=== PATIENT | female | born 1995 | race Hispanic/Latino ===

== ENCOUNTER 2025-06-07 15:26 | Emergency (ER) | payer SELFPAY ==
[~2025-06-07] VITALS: Ht 162.6 cm; Wt 107.5 kg
[2025-06-07] MEDS: BENZONATATE 100 MG CAPSULE PO STA (15:38)
[2025-06-07] MEDS: 0.9%NACL 1000ML 1,000 ML IV STA (15:38)
--- NOTE | 2025-06-07 15:47 | EKG ---
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
[2025-06-07 15:59] LABS: IMMATURE GRANULOCYTE ABSOLUTE 0.03 K/uL (0-1); NUCLEATED RED BLOOD CELLS 0.0 % (0.0-0.19); PLATELET COUNT (AUTO) 290 K/uL (130-400); RED BLOOD CELL COUNT(AUTO) 5.12 MIL/uL (4.00-5.50); RED CELL DISTRIBUTION WIDTH 13.0 % (11.0-15.5); WHITE BLOOD COUNT (AUTO) 9.6 K/uL (4.8-10.8)
[2025-06-07 16:06] LABS: CREATININE 0.7 mg/dL (0.5-1.0); GLOMERULAR FILTR. RATE CALC 119.0 mL/min (>90); GLUCOSE,RANDOM 92.0 mg/dL (70-105); SODIUM SERUM 140.0 mmol/L (136-145); UREA NITROGEN, BLOOD 15.0 mg/dL (7-18)
[2025-06-07 16:13] LABS: SARS-CoV-2, RNA, NAAT NEGATIVE SARS CoV-2 (NEGATIVE)
[2025-06-07 16:19] LABS: INFLUENZA TYPE A Negative For Type A (NEGATIVE); INFLUENZA TYPE B Negative For Type B (NEGATIVE)
[2025-06-07 18:00] VITALS: BP 135/81; PULSE 78; RESP 19; TEMP 98.6; O2SAT 97
--- NOTE | 2025-06-07 18:06 | HMCIMG ---
EXAM: XR Chest, 1 View. CLINICAL HISTORY: 29-year-old female with a cough. COMPARISON: Prior XR Chest from 05/19/2016 at 4:29 AM. FINDINGS: LUNGS: No consolidation. PLEURAL SPACES: No pleural effusion or pneumothorax. HEART: The heart size is normal. BONES: No acute osseous abnormality. IMPRESSION: 1. No acute cardiopulmonary process. 2. Findings similar compared to prior XR Chest from 05/19/2016 at 4:29 AM. /[place]
--- NOTE | 2025-06-07 18:13 | ERN ---
ED Note History of Present Illness Stated Complaint: CHEST PAIN Chief Complaint: Chest Pain Time Seen by MD: 15:32 Time Seen by Midlevel: 15:36 Dictation: 29-year-old female with no past medical history coming in with complaints of cough for the last two days along with the chest pain. Went to see PCP this morning and was sent here for her chest pain. Patient states pain is worse on palpation. Denies having any shortness a breath, fevers, nausea vomiting, or congestion. Allergies: Coded Allergies: No Known Drug Allergies (Unverified Allergy, Unknown, 06/07/25) Past Medical History Past Medical History: Other Additional Past Medical Hx: NUERALGIA, ERYTHEMA Surgical History: Tonsillectomy LMP: Jun 06, 2025 : 0 Review of System Dictation Constitutional: Negative for fever,chills, and weight loss Eyes: Negative for injury, pain,redness, and discharge ENT: Negative for injury,pain or swelling Cardiovascular: Positive for chest pain, no palpitations, and edema Respiratory: Negative for shortness of breath, positive for cough Abdomen/GI: Negative for abdominal pain, nausea, vomiting, diarrhea, and constipation Back: Negative for injury and pain : Negative for injury, bleeding and discharge MS/Extremity: Negative for injury and deformity Skin: Negative for rash, and discoloration Neuro: Negative for headache, weakness, numbness, tingling, and seizure Psych: Negative for suicide ideation, homicidal ideation, and hallucinations Review of Systems: was completed Initial Vital Sign VS Vital Signs Date Time Temp Pulse Resp B/P (MAP) Pulse Ox O2 Delivery O2 Flow Rate FiO2 06/07/25 15:29 97.7 76 18 138/63 98 Room Air 0 06/07/25 17:00 21 Physical Exam Dictation General: awake, alert, NAD Head/Face: Normocephalic, atraumatic Eyes: PERRL, EOMI, vision at baseline ENT: oral cavity clear, TMs clear, no signs of infection Neck: Trachea midline, supple, no nuchal rigidity Cardiovascular: RRR, normal S1/S2, No MRGs, no JVD Respiratory: CTAB, no respiratory distress, No rales or wheezes Abdomen: Soft, non-tender, non-distended, normal bowel sounds, no guarding or rebound. Skin: Warm, dry, normal turgor, no rash MS/Extremity: Pulses equal, no cyanosis, neurovascular intact, FROM Neuro: COAx4, GCS 15, strength 5/5, CN 2-12 intact, normal cerebellar exam, normal gait, Psych: Normal behavior, mood, and affect normal Results (Laboratory/Radiology) Laboratory/Radiology Laboratory Tests Test 06/07/25 15:40 06/07/25 15:50 Influenza Type A Antigen Negative For Type A Influenza Type B Antigen Negative For Type B SARS-CoV-2, RNA, NAAT NEGATIVE SARS CoV-2 White Blood Count 9.6 K/uL (4.8-10.8) Red Blood Count 5.12 MIL/uL (4.00-5.50) Hemoglobin 13.5 g/dL (12.0-16.0) Hematocrit 42.6 % (36-48) Mean Corpuscular Volume 83.2 fL (79-99) Mean Corpuscular Hemoglobin 26.4 pg (27.0-33.0) L Mean Corpuscular Hemoglobin Concent 31.7 g/dL (32.0-36.0) L Red Cell Distribution Width 13.0 % (11.0-15.5) Platelet Count 290 K/uL (130-400) Mean Platelet Volume 9.9 fL (7.5-10.5) Immature Granulocyte % (Auto) 0.3 % (0-1) Neutrophils (%) (Auto) 59.5 % (40.0-77.0) Lymphocytes (%) (Auto) 31.1 % (21.0-51.0) Monocytes (%) (Auto) 6.5 % (3.0-13.0) Eosinophils (%) (Auto) 1.9 % (0.0-8.0) Basophils (%) (Auto) 0.7 % (0.0-5.0) Neutrophils # (Auto) 5.7 K/uL (1.8-7.7) Lymphocytes # (Auto) 3.0 K/uL (1.0-4.8) Monocytes # (Auto) 0.6 K/uL (0.1-1.0) Eosinophils # (Auto) 0.18 K/uL (0.00-0.70) Basophils # (Auto) 0.07 K/uL (0.00-0.20) Absolute Immature Granulocyte (auto 0.03 K/uL (0-1) Nucleated Red Blood Cells 0.0 % (0.0-0.19) Sodium Level 140 mmol/L (136-145) Potassium Level 3.8 mmol/L (3.5-5.1) Chloride Level 103 mmol/L (101-111) Carbon Dioxide Level 27 mmol/L (21-32) Blood Urea Nitrogen 15 mg/dL (7-18) Creatinine 0.7 mg/dL (0.5-1.0) Glomerular Filtration Rate Calc 119 mL/min (>90) Random Glucose 92 mg/dL (70-105) Total Calcium 9.2 mg/dL (8.5-10.1) Troponin I High Sensitivity < 4 ng/L (4-50) L Labs Reviewed?: Yes ED Course ED Course Orders Procedure Category Date Status Time 12 Lead Ekg Tracing- EKG 06/07/25 Logged Technical 15:39 Cbc With Differential LAB 06/07/25 Complete 15:38 Basic Metabolic Panel LAB 06/07/25 Complete 15:38 Troponin I High LAB 06/07/25 Complete Sensitivity 15:38 12 Lead Ekg Tracing- EKG 06/07/25 Complete Technical 15:38 Chest 1vw RAD 06/07/25 Resulted 15:38 Covid Rna Naat LAB 06/07/25 Complete 15:38 Influenza Type A & B, LAB 06/07/25 Complete Rapid 15:38 0.9%Nacl 1000ml (Ns PHA 06/07/25 Complete 1000ml) 15:38 Ketorolac PHA 06/07/25 Complete Tromethamine 15mg/Ml 15:38 Benzonatate 100 Mg PHA 06/07/25 Complete Capsule (Tessalon 100 15:38 Current Medications Medications (Trade) Dose Ordered Sig/Gregory Route PRN Reason Start Time Stop Time Status Last Admin Dose Admin Benzonatate (Tessalon 100mg Caps) 200 mg ONCE STAT PO 06/07/25 15:38 06/07/25 15:45 DC Ketorolac Tromethamine (toRADol) 15 mg ONCE STAT IV 06/07/25 15:38 06/07/25 15:45 DC 06/07/25 15:38 Sodium Chloride 1,000 ml @ 1,000 mls/hr Q1H STAT IV 06/07/25 15:38 06/07/25 16:37 DC 06/07/25 15:38 Vital Signs Date Time Temp Pulse Resp B/P (MAP) Pulse Ox O2 Delivery O2 Flow Rate FiO2 06/07/25 18:00 98.6 78 19 135/81 97 Room Air* 0 21 06/07/25 17:00 99.1 81 20 117/66 99 Room Air* 0 21 06/07/25 15:29 97.7 76 18 138/63 98 Room Air 0 Medical Decision Making MDM MDM: 29-year-old female with no past medical history coming in with complaints of cough for the last two days along with the chest pain. Went to see PCP this morning and was sent here for her chest pain. Patient states pain is worse on palpation. Denies having any shortness a breath, fevers, nausea vomiting, or congestion. Blood work is unremarkable. Troponin is negative. EKGs shows no ST elevations, Rocephin put a nasal arrhythmias. Chest x-ray shows no acute finding interpreted by myself. Discussed with the patient because pain is reproducible on palpating bilateral chest brock this more than likely represents costochondritis versus a cardiac etiology. Patient received fluids, Toradol and cough medication in the ER. Educated she needs to follow up PCP in in 1-2 days and return to the hospital for any worsening symptoms. Patient verbalized understanding, answered all questions. Differential diagnosis: Costochondritis, STEMI, NSTEMI, pneumonia, viral syndrome Rationale: Tests considered and ordered secondary to shared decision making inc lude: Previous outside records reviewed: Old ER visits. Risk of complication and/or morbidity or mortality of patient management: None Medications-Per medication reconciliation Need for hospitalization: Patient does not meet criteria for hospitalization. Need for emergency major/minor surgery: No There are no social concerns with this patient. Prescription drug management Prescriptions will include symptomatic care Patient's prior external medical records from other ER visits were reviewed by me as indicated. Prior testing and results from previous visits were reviewed. Prior tests were taken into account with medical decision making and resource utilization, independent historian/historians were used to obtain complete medical history. I independently interpreted the test that were performed, results were reviewed by me and considered findings on radiology if ordered. Medical management and examination interpretation discussions were had by me with other qualified healthcare professionals as indicated for the patient's care. DX & DISP Disposition: Discharge Departure Impression: Primary Impression: Cough Additional Impression: Costochondritis Condition: Stable Additional Instructions: Your lab work shows no abnormal findings. Your chest x-ray shows no pneumonia or any lung etiology. Your heart markers are normal. EKGs was normal. More than likely you have costochondritis in your cough is exacerbating the symptoms. You can take [id number] anti-inflammatories like Advil, Motrin, ibuprofen. Follow up with your primary doctor in 1-2 days. Return to the hospital if you have any worsening symptoms. Referrals: PEPITO LUA (PCP) Time of Disposition: 18:11 I have reviewed the case, and I agree with, Diagnosis and Plan GIANFRANCO DEL CID Jun 07, 2025 18:13 MILENA PA DO Jun 07, 2025 19:04
== END 2025-06-07 18:37 | disposition home or self-care (01) ==
LOC: EDH 15:26
DX: M94.0 Chondrocostal junction syndrome [Tietze] (principal); R05.9 Cough, unspecified; Z90.89 Acquired absence of other organs; Z20.822 Contact with and (suspected) exposure to COVID-19
CPT/HCPCS: 36415; 71045; 80048; 84484; 85025; 87635; 87804; 93005; 96361; 96374; 99285; J1885

== ENCOUNTER 2025-08-05 20:59 | Emergency (ER) | payer SELFPAY ==
[~2025-08-05] VITALS: Ht 162.6 cm; Wt 104.3 kg
--- NOTE | 2025-08-05 21:01 | NUR ---
UA CUP PROVIDED
--- NOTE | 2025-08-05 21:48 | NUR ---
PT IN ULTRA SOUND. WILL TAKE HER TO ROOM 18 WHEN DONE
--- NOTE | 2025-08-05 21:49 | ERN ---
ED Note History of Present Illness Stated Complaint: PAIN , SWELLING TO LEFT LOWER LEG, Chief Complaint: Cellulitis Time Seen by MD: 21:01 Time Seen by Midlevel: 21:25 Dictation: PATIENT IS A 29-YEAR-OLD FEMALE HERE WITH ERYTHEMA SWELLING AND TENDERNESS TO HER DISTAL ANTERIOR MEDIAL LEFT LEG AND FOOT. SHE STATES IT STARTED IN MAY HAS ALREADY BEEN TO SEE HER PRIMARY CARE DOCTOR WHO DID A CONSIDERABLE WORKUP TO INCLUDE [facility] AND WAS TOLD THAT SHE NEEDED TO SEE A PRESIDENT [place]. SHE HAS NOT SEEN HER DOCTOR YET. THE DOCTOR ALTERED TRIED HER ON SOME PREDNISONE WHICH SHE STOPPED TAKING BECAUSE IT DID NOT MAKE HER FEEL GOOD SHE HAS BEEN HAVING CONSIDERABLE PAIN SHE DENIES FEVER CHILLS NAUSEA VOMITING. NO TRAUMA. Allergies: Coded Allergies: No Known Drug Allergies (Unverified Allergy, Unknown, 06/07/25) Past Medical History Past Medical History: Other Additional Past Medical Hx: NUERALGIA, ERYTHEMA Surgical History: Tonsillectomy LMP: Jul 29, 2025 : 0 RN Note Reviewed/Agreed w/PFSH: Yes Review of System Dictation CONSTITUTIONAL: NEGATIVE EXCEPT FOR HPI HEAD/FACE: NEGATIVE EXCEPT FOR HPI EENT: NEGATIVE EXCEPT FOR HPI RESPIRATORY: NEGATIVE EXCEPT FOR HPI GASTROINTESTINAL/ABDOMINAL: NEGATIVE EXCEPT FOR HPI GENITOURINARY: NEGATIVE EXCEPT FOR HPI MUSCULOSKELETAL: NEGATIVE EXCEPT FOR HPI DISTAL LEFT TIBIAL PAIN TENDERNESS WITH ERYTHEMA THAT EXTENDS TO FOOT. INTEGUMENTARY: NEGATIVE EXCEPT FOR HPI NEUROLOGICAL/PSYCH: NEGATIVE EXCEPT FOR HPI HEMATOLOGIC/LYMPHATIC: NEGATIVE EXCEPT FOR HPI ALL SYSTEMS NEGATIVE, EXCEPT NOTED ABOVE. 13 POINT REVIEW OF SYSTEMS ASSESSED AND ALL NEGATIVE EXCEPT FOR ABOVE. Initial Vital Sign VS Vital Signs Date Time Temp Pulse Resp B/P (MAP) Pulse Ox O2 Delivery O2 Flow Rate FiO2 08/05/25 21:01 97.9 87 20 141/94 99 Room Air 08/05/25 21:53 0 21 Physical Exam Dictation VITAL SIGNS REVIEWED GENERAL APPEARANCE: ALERT, ORIENTED X 3, MODERATE ACUTE DISTRESS, WELL DEVELOPED, NOURISHED. HEAD AND FACE: NON-TRAUMATIC. EYES: PERRL, PINK CONJUNCTIVAS, EYELID NO TRAUMA, ANTERIOR CHAMBER WITH ARCUS SENILIS. EARS: PINNAS INTACT AND NO SIGNS OF TRAUMA OR ERYTHEMA EAR CANALS CLEAR AND NO DISCHARGE TM NO ERYTHEMA NOSE: NO DISCHARGE, NO BLEEDING. OROPHARYNX: MOUTH NORMAL, TONGUE PINK, PHARYNX CLEAR,NO ERYTHEMA, TONSILS NO EXUDATES, NO ABSCESSES NOTED, MUCOUS MEMBRANE MOIST NECK: SUPPLE, NON-TENDER, NO THYROMEGALY, NO MASSES, NO JVD, NO BRUITS BREAST:DEFERRED CHEST:NO TENDERNESS, NO CREPITUS, NO PARADOXICAL MOVEMENT, NO RETRACTIONS LUNGS:CLEAR, WELL-VENTILATED, SYMMETRIC, NO RALES, NO WHEEZING, NO RHONCHI, NO STRIDOR, GOOD BREATH SOUNDS BILATERALLY HEART: REGULAR RATE, REGULAR RHYTHM, NO MURMUR, NO GALLOPS VASCULAR: NO PERIPHERAL EDEMA, ABDOMEN: SOFT, POSITIVE BOWEL SOUNDS, NONDISTENDED, NO GUARDING, NONTENDER, NO REBOUND, NO MASSES NO HEPATOMEGALY, NO SPLENOMEGALY, NO DEGROOT'S SIGN, NO HERNIAS. RECTAL: DEFERRED GENITAL: DEFERRED NEUROLOGICAL: NORMAL SPEECH, MOTOR FUNCTION INTACT, SENSORY FUNCTION INTACT MUSCULOSKELETAL: NECK NONTENDER, FULL RANGE OF MOTION, BACK NONTENDER, FULL RANGE OF MOTION, EXTREMITIES: NONTENDER, FULL RANGE OF MOTION SKIN: COLOR DISTAL LEFT TIBIAL AND MEDIAL ASPECT WITH ERYTHEMATOUS SWELLING AND TENDERNESS. ALSO EXTENDS TO THE DORSUM OF THE LEFT FOOT. NEUROVASCULAR CMS INT ACT. LYMPHATIC: DEFERRED Results (Laboratory/Radiology) Laboratory/Radiology Laboratory Tests Test 08/05/25 22:39 White Blood Count 9.3 K/uL (4.8-10.8) Red Blood Count 4.84 MIL/uL (4.00-5.50) Hemoglobin 12.8 g/dL (12.0-16.0) Hematocrit 40.0 % (36-48) Mean Corpuscular Volume 82.6 fL (79-99) Mean Corpuscular Hemoglobin 26.4 pg (27.0-33.0) L Mean Corpuscular Hemoglobin Concent 32.0 g/dL (32.0-36.0) Red Cell Distribution Width 13.2 % (11.0-15.5) Platelet Count 303 K/uL (130-400) Mean Platelet Volume 10.0 fL (7.5-10.5) Immature Granulocyte % (Auto) 0.2 % (0-1) Neutrophils (%) (Auto) 49.9 % (40.0-77.0) Lymphocytes (%) (Auto) 41.8 % (21.0-51.0) Monocytes (%) (Auto) 5.3 % (3.0-13.0) Eosinophils (%) (Auto) 2.3 % (0.0-8.0) Basophils (%) (Auto) 0.5 % (0.0-5.0) Neutrophils # (Auto) 4.7 K/uL (1.8-7.7) Lymphocytes # (Auto) 3.9 K/uL (1.0-4.8) Monocytes # (Auto) 0.5 K/uL (0.1-1.0) Eosinophils # (Auto) 0.21 K/uL (0.00-0.70) Basophils # (Auto) 0.05 K/uL (0.00-0.20) Absolute Immature Granulocyte (auto 0.02 K/uL (0-1) Nucleated Red Blood Cells 0.0 % (0.0-0.19) Sodium Level 139 mmol/L (136-145) Potassium Level 3.7 mmol/L (3.5-5.1) Chloride Level 102 mmol/L (101-111) Carbon Dioxide Level 26 mmol/L (21-32) Blood Urea Nitrogen 18 mg/dL (7-18) Creatinine 0.8 mg/dL (0.5-1.0) Glomerular Filtration Rate Calc 101 mL/min (>90) Random Glucose 100 mg/dL (70-105) Lactic Acid Level 1.1 mmol/L (0.8-2.5) Uric Acid 6.1 mg/dL (2.6-7.2) Total Calcium 8.9 mg/dL (8.5-10.1) RING PHYSICIAN: CINTHYA SANTANA PROCEDURE: VENOUS UNI - US VENOUS DOPPLER UNILATERAL EXAM: US for Deep Venous Thrombosis, left Lower Extremity. CLINICAL HISTORY: Leg Pain and Swelling TECHNIQUE: Real-time ultrasound scan of the veins of the left lower extremity with color Doppler flow, spectral waveform analysis and compression. COMPARISON: None provided. FINDINGS: DEEP VEINS: The common femoral, superficial femoral, and popliteal veins are echolucent and compressible. There is normal color Doppler flow throughout. The visualized calf veins appear patent. SOFT TISSUES: No popliteal fossa cyst or other abnormalities. IMPRESSION: No deep venous thrombosis evident on left lower extremity examination. /[facility] Labs Reviewed?: Yes ED Course ED Course Orders Procedure Category Date Status Time Us Venous Doppler US 08/05/25 Resulted Unilateral 21:37 Acetaminophen With PHA 08/05/25 Complete Codeine (Tylenol-Code 22:00 Blood Cult TRACY 08/05/25 In Process 22:22 Lactic Acid LAB 08/05/25 Complete 22:22 Uric Acid LAB 08/05/25 Complete 22:22 Cbc With Differential LAB 08/05/25 Complete 22:22 Basic Metabolic Panel LAB 08/05/25 Complete 22:22 Current Medications Medications (Trade) Dose Ordered Sig/Gregory Route PRN Reason Start Time Stop Time Status Last Admin Dose Admin Acetaminophen/ Codeine Phosphate (TYLenol-coDEINE TAB) 2 tab ONCE ONCE PO 08/05/25 22:00 08/05/25 22:03 DC 08/05/25 22:48 Vital Signs Date Time Temp Pulse Resp B/P (MAP) Pulse Ox O2 Delivery O2 Flow Rate FiO2 08/05/25 21:53 97.9 86 18 140/84 98 Room Air* 0 21 08/05/25 21:01 97.9 87 20 141/94 99 Room Air 2355/DISCUSSED PATIENT'S FINDING AT LENGTH SHE IS AWARE THERE WAS NO INFECTION DIAGNOSIS IS ERYTHEMA NODOSUM SHE SAID THAT HAS A DIAGNOSIS HER DOCTOR AND GIVEN HER TO Medical Decision Making MDM MDM: DIFFERENTIAL DIAGNOSIS: VT/CELLULITIS/ELECTROLYTE IMBALANCE/DEHYDRATION/GOUTY ARTHRITIS SEPSIS RATIONALE: TESTS CONSIDERED AND ORDERED SECONDARY TO SHARED DECISION MAKING INCLUDE: PREVIOUS OUTSIDE RECORDS REVIEWED: OLD ER VISITS. RISK OF COMPLICATION AND/OR MORBIDITY OR MORTALITY OF PATIENT MANAGEMENT: NONE MEDICATIONS-PER MEDICATION RECONCILIATION NEED FOR HOSPITALIZATION: PATIENT DOES NOT MEET CRITERIA FOR HOSPITALIZATION. NONE NEED FOR EMERGENCY MAJOR/MINOR SURGERY: NO THERE ARE NO SOCIAL CONCERNS WITH THIS PATIENT. PRESCRIPTION DRUG MANAGEMENT CORTISONE/TYLENOL THREE PRESCRIPTIONS WILL INCLUDE SYMPTOMATIC CARE PATIENT'S PRIOR EXTERNAL MEDICAL RECORDS FROM OTHER ER VISITS WERE REVIEWED BY ME INDICATED. PRIOR TESTING AND RESULTS FROM PREVIOUS VISITS WERE REVIEWED. PRIOR TESTS WERE TAKEN INTO ACCOUNT WITH MEDICAL DECISION MAKING AND RESOURCE UTILIZATION, INDEPENDENT HISTORIAN/HISTORIANS WERE USED TO OBTAIN COMPLETE MEDICAL HISTORY. I INDEPENDENTLY INTERPRETED THE TEST THAT WERE PERFORMED, RESULTS WERE REVIEWED BY ME AND CONSIDERED FINDINGS ON RADIOLOGY IF ORDERED. MEDICAL MANAGEMENT AND EXAMINATION INTERPRETATION DISCUSSIONS WERE HAD BY ME WITH OTHER QUALIFIED HEALTHCARE PROFESSIONALS INDICATED FOR THE PATIENT'S CARE. DX & DISP Disposition: Discharge Departure Impression: Primary Impression: Erythema nodosum Condition: Stable Scripts Prednisone (Prednisone) 20 Mg Tablet 2 TAB PO DAILY for 10 Days, #20 TAB 0 Refills TWO TABLETS DAILY WITH FOOD FOR 10 DAYS. Prov: CINTHYA SANTANA COMPUTATIONAL LINGUIST 08/05/25 Acetaminophen with Codeine (Acetaminophen-Cod #3 Tablet) 300 Mg-30 Mg Tablet 1 TAB PO Q4H PRN for MODERATE TO SEVERE PAIN, #20 TAB 0 Refills Prov: ESTHERCINTHYA Cross COMPUTATIONAL LINGUIST 08/05/25 Additional Instructions: Follow-up with primary care provider in 1 to 2 days. Take medications as direct ed here in the emergency room. Okay to continue home medications unless otherwise discussed during your visit in the emergency room today. Return to your nearest emergency room if symptoms worsen or if there is no improvement. Call 911 if you need immediate assistance. Take Tylenol or Motrin [id number] as needed and if no contraindications are present. Increase oral hydration. A wound culture or urine culture was ordered here in the emergency room department please follow-up with primary care provider and advise them to get repeat ports from our facility. If you had any Angel wrap/splints that were applied here, please do not remove them until you see your primary care or specialty. Take Pepcid 40 mg [id number] daily for two weeks. Take prednisone as directed with food for the next 10 days. Take Tylenol with codeine for severe pain Follow up with the your associate director as soon as possible. Referrals: PEPITO LUA (PCP) Time of Disposition: 23:57 I have reviewed the case, and I agree with, Diagnosis and Plan CINTHYA SANTANAP Aug 05, 2025 21:49
--- NOTE | 2025-08-05 21:50 | NUR ---
REPORT TO HERBER CRISTINA
--- NOTE | 2025-08-05 22:24 | HMCIMG ---
EXAM: US for Deep Venous Thrombosis, left Lower Extremity. CLINICAL HISTORY: Leg Pain and Swelling TECHNIQUE: Real-time ultrasound scan of the veins of the left lower extremity with color Doppler flow, spectral waveform analysis and compression. COMPARISON: None provided. FINDINGS: DEEP VEINS: The common femoral, superficial femoral, and popliteal veins are echolucent and compressible. There is normal color Doppler flow throughout. The visualized calf veins appear patent. SOFT TISSUES: No popliteal fossa cyst or other abnormalities. IMPRESSION: No deep venous thrombosis evident on left lower extremity examination. /Bob
[2025-08-05 22:59] LABS: IMMATURE GRANULOCYTE ABSOLUTE 0.02 K/uL (0-1); NUCLEATED RED BLOOD CELLS 0.0 % (0.0-0.19); PLATELET COUNT (AUTO) 303 K/uL (130-400); RED BLOOD CELL COUNT(AUTO) 4.84 MIL/uL (4.00-5.50); RED CELL DISTRIBUTION WIDTH 13.2 % (11.0-15.5); WHITE BLOOD COUNT (AUTO) 9.3 K/uL (4.8-10.8)
[2025-08-05 23:03] LABS: CREATININE 0.8 mg/dL (0.5-1.0); GLOMERULAR FILTR. RATE CALC 101.0 mL/min (>90); GLUCOSE,RANDOM 100.0 mg/dL (70-105); SODIUM SERUM 139.0 mmol/L (136-145); UREA NITROGEN, BLOOD 18.0 mg/dL (7-18)
[2025-08-05] MEDS ORDERED: PRED20TA3 PO (23:59)
[2025-08-05] MEDS ORDERED: ACET-2079 PO (23:59)
[2025-08-06 00:07] VITALS: BP 136/76; PULSE 84; RESP 20; TEMP 98.2; O2SAT 99
== END 2025-08-06 00:28 | disposition home or self-care (01) ==
LOC: EDH 20:59
DX: L52 Erythema nodosum (principal); M79.662 Pain in left lower leg; Z90.89 Acquired absence of other organs
CPT/HCPCS: 36415; 80048; 83605; 84550; 85025; 87040; 93971; 99284